=== PATIENT | female | born 1985 | race Caucasian/White ===

== ENCOUNTER 2018-01-04 01:21 | Emergency (ER) | END 2018-01-04 05:17 | disposition home or self-care (01) ==

== ENCOUNTER 2018-04-11 12:33 | Outpatient (CLI) | END 2018-04-11 14:42 | disposition home or self-care (01) ==

== ENCOUNTER 2018-06-13 08:37 | Outpatient (CLI) | END 2018-06-13 13:45 | disposition home or self-care (01) ==

== ENCOUNTER 2018-06-22 10:50 | Inpatient (IN) | END 2018-06-25 16:26 | disposition home or self-care (01) | DRG 786 ==